=== PATIENT | female | born 1965 | race Caucasian/White ===

== ENCOUNTER → 2017-03-12 | Outpatient (CLI) | payer BC ==
[2015-11-26 08:38] VITALS: BP 133/79
[~2017-03-12] MED LIST: ASCO-78 PO; BECL8.7A6 IH; CHOL100013 PO; MONT10TA9 PO; OMEG1CAP6 PO
--- NOTE | 2017-03-12 14:22 | KCIC ---
MR of the right knee HISTORY: Mechanical pain of the right knee, mostly anterior. In the swelling in the last 3 weeks. TECHNIQUE: Routine multiplanar sequences are obtained. FINDINGS: Mild signal within the medial meniscus, demonstrates undersurface violation on a single coronal slice only, compatible with a possible tear. No evidence of a lateral meniscal tear. Anterior and posterior cruciate ligaments are intact. Medial collateral ligament intact. Iliotibial band unremarkable. Fibular collateral ligament, biceps femoris tendon and popliteus tendon are intact. Extensor mechanism is intact. Moderate joint effusion. Mild chondromalacia of the patella. Mild chondromalacia at the femoral trochlea. Moderate chondromalacia at the medial femoral condyle. No bone lesion. No acute fracture. Small Johnston cyst. Mild edema/hemorrhage around the knee. Mild disorganized fluid in the upper medial calf may indicate rupture or leakage from the Johnston's cyst. Fluid at the posterior lateral corner of the knee, nonspecific can be associated with posterolateral corner small ligament injury if there is clinical concern. IMPRESSION: 1. Subtle findings, compatible with a possible medial meniscal tear. If present, the tear is very small. 2. Primary osteoarthritis. 3. Small Johnston cyst was suspected leakage or rupture. Electronically signed by: Juvencio Cao MD (03/12/2017 2:19 PM)
== END | disposition home or self-care (01) ==
LOC: KCIC MRI 11:08
PROVIDERS: ATTEND Orthopaedic Surgery Sports Medicine
DX: M17.11 Unilateral primary osteoarthritis, right knee (principal)
CPT/HCPCS: 73721

== ENCOUNTER → 2021-02-14 | Outpatient (CLI) | payer BC ==
[2015-11-26 08:38] VITALS: BP 133/79
[~2021-02-14] MED LIST changes: +MONT10TA49 PO; -MONT10TA9 PO
--- NOTE | 2021-02-14 14:11 | KCIC ---
STUDY: MRI of the left knee without contrast INDICATION: Left knee pain and swelling. Pain is reportedly medial. COMPARISON: None. TECHNIQUE: Multiplanar MR imaging of the left knee performed without the use of intravenous or intra- articular contrast. FINDINGS: Menisci: Tiny irregularity at the tibial margin of the lateral meniscus posterior horn, image 9 serie s 7, without a full-thickness meniscal tear. Mild heterogeneity of the medial meniscus posterior horn , such as on image 17 series 7, but without a well delineated fluid signal tear defect extending thro ugh an articular surface to be considered a tear. Cruciate ligaments: Intact. Collateral ligaments: Mild thickening and heterogeneity at the proximal aspect of both the MCL and fi bular collateral ligament but without a ligamentous tear. Slightly asymmetric periligamentous edema a long the MCL complex could indicate a grade 1 sprain. Unremarkable IT band with some reactive adjacen t edema. The retinacula are intact. Tendons: Intact. Cartilage: Patellofemoral: Several areas of partial thickness chondrosis but with higher grade defects as seen a t the lower margin of the medial trochlea and lower margin of the lateral patellar facet. Lateral compartment: No focal chondral defect. Medial compartment: High-grade chondrosis at the far posterior nonweightbearing medial femoral condyl e, image 13 series 4, in addition to overlying the medial meniscus posterior horn. Predominantly part ial-thickness chondrosis at the weightbearing aspect of the medial compartment mainly along its perip eli. Bones: A few areas of subchondral edema/cystic change on account of chondral loss. Scattered osteophy jung. No acute fracture or focally aggressive marrow signal abnormality. Miscellaneous: Small/moderate knee joint effusion with a few particulate loose bodies. Trace fluid wi thin the medial gastrocnemius-semimembranosus bursa. IMPRESSION: 1. No abnormality of either meniscus that would meet imaging criteria to be considered a tear. The c ruciate ligaments are intact. Both the medial collateral ligament and fibular collateral ligament are heterogeneous at their proximal aspects but there is some periligamentous edema medially which could indicate a grade 1 MCL sprain in the appropriate clinical setting. 2. 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 3. Small/moderate knee joint effusion with a few particulate loose bodies Electronically signed by: ADA KOEHLER MD (02/14/2021 2:08 PM) [id number]
== END ==
LOC: KCIC MRI 12:21
PROVIDERS: ATTEND Orthopaedic Surgery Sports Medicine
DX: S83.207A Unspecified tear of unspecified meniscus, current injury, left knee, initial encounter (principal); M25.462 Effusion, left knee; X58.XXXA Exposure to other specified factors, initial encounter; Y93.89 Activity, other specified; Y92.89 Other specified places as the place of occurrence of the external cause; Y99.8 Other external cause status
CPT/HCPCS: 73721